=== PATIENT | male | born 1955 | race Hispanic/Latino ===

== ENCOUNTER 2020-06-13 08:53 | Day surgery (SDC) | payer BC ==
[2020-06-11 12:35] VITALS: BP 153/92
[2020-06-11 13:03] LABS: BASOPHILS % (AUTO) 0.5 % (0.0-5.0); EOSINOPHILS % (AUTO) 2.2 % (0.0-8.0); HEMATOCRIT 43.7 % (42-54); LYMPHOCYTES % (AUTO) 29.5 % (21.0-51.0); MEAN CORPUSCULAR HEMOGLOBIN 31.2 pg (27.0-33.0); MEAN CORPUSCULAR HGB CONC 32.5 g/dL (32.0-36.0); MONOCYTES % (AUTO) 10.8 % (3.0-13.0); NEUTROPHILS % (AUTO) 56.8 % (40.0-77.0); PLATELET COUNT (AUTO) 245 K/uL (130-400); RED BLOOD CELL COUNT(AUTO) 4.55 MIL/uL (4.50-6.20); RED CELL DISTRIBUTION WIDTH 12.6 % (11.0-15.5); WHITE BLOOD COUNT (AUTO) 8.7 K/uL (4.8-10.8)
[2020-06-11 13:10] LABS: CREATININE 0.8 mg/dL (0.5-1.5); POTASSIUM 4.4 mmol/L (3.5-5.1)
[2020-06-13] VITALS (15 sets, daily range): BP systolic 109–144; BP diastolic 67–94
[~2020-06-13 08:53] MED LIST: DORZ10DR19 OU; LOSA100T58 PO
[2020-06-13] MEDS: CEFAZOLIN SODIUM 1 GM VIAL IVP ONE ×2 (10:00→12:51)
[2020-06-13] MEDS ORDERED: CEFAZOLIN SODIUM 1 GM VIAL ONE (10:08)
[2020-06-13] MEDS: LACTATED RINGERS 1000ML 1,000 ML IV SCH ×2 (10:26→13:12)
[2020-06-13] MEDS ORDERED: ROPIVACAINE 0.5% 5MG/ML 30ML IJ ONE (12:33)
[2020-06-13] MEDS ORDERED: NEOSTIGMINE 5MG/5ML SYR IV ONE (14:15)
[2020-06-13] MEDS ORDERED: GLYCOPYRROLATE 1 MG/5 ML SYRINGE ONE (14:15)
[2020-06-13] MEDS ORDERED: LIDOCAINE PF 2% 5ML ABBOJECT ONE (14:16)
[2020-06-13] MEDS ORDERED: SUCCINYLCHOLINE CHLORIDE 20 MG/ML 10 ML VIAL ONE (14:16)
[2020-06-13] MEDS ORDERED: ROCURONIUM 10MG/1ML SYR 10 MG/ML ML ONE (14:17)
[2020-06-13] MEDS ORDERED: FENTANYL CITRATE PF 50 MCG/1 ML 2ML VIAL ONE (14:17)
[2020-06-13] MEDS ORDERED: MIDAZOLAM HCL 1 MG/ML 2ML VIAL ONE (14:17)
[2020-06-13] MEDS ORDERED: PROPOFOL 10 MG/ML 20ML VIAL IV ONE ×2 (14:17→14:28)
[2020-06-13] MEDS ORDERED: EPHEDRINE SULFATE 50 MG/ML AMPULE ONE (14:22)
[2020-06-13] MEDS ORDERED: PHENYLEPHRINE HCL 10 MG/ML 1ML VIAL IV ONE (14:28)
[2020-06-13] MEDS ORDERED: MEPERIDINE-PF 25 MG/ML SYG ONE (14:59)
== END 2020-06-13 16:30 | disposition home or self-care (01) ==
LOC: DAH 08:53
PROVIDERS: ATTEND Orthopaedic Surgery
DX: S52.572A Other intraarticular fracture of lower end of left radius, initial encounter for closed fracture (principal); J45.909 Unspecified asthma, uncomplicated; I10 Essential (primary) hypertension; W19.XXXA Unspecified fall, initial encounter; Y93.89 Activity, other specified; Y92.89 Other specified places as the place of occurrence of the external cause; Y99.8 Other external cause status; Z20.828 Contact with and (suspected) exposure to other viral communicable diseases
CPT/HCPCS: 25609; 36415; 64417; 73110; 76942; 80048; 85025; 87426; 93005; A4213; A4215; A4221; A4222; A4223; A4649 ×4; A4663; A4930; A6223; A6260; C1713 ×4; C1769; C1776 ×2; J0330; J0690; J2001; J2175; J2250; J2370; J2704 ×2; J2710; J2795; J3010; J3490 ×2; J7120 ×2; Q4050; U0003